=== PATIENT | female | born 1985 | race American Indian/Alaskan Native ===

== ENCOUNTER 2019-05-27 18:26 | Emergency (ER) | payer MEDICAID ==
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
[2019-05-27] MEDS ORDERED: LORazepam 0.5 MG Tab PO ONE (18:53)
[2019-05-27] MEDS ORDERED: Diphtheria,Pertussis(Acell),Tetanus Vaccine 0.5 ML SDV IM ONE (18:55)
--- NOTE | 2019-05-27 19:07 | CT ---
[id number] CT/CT Facial Bones WO IV Exam: CT Facial Bones WO IV Clinical Data: TRAUMA COMPARISON: NO PREVIOUS SIMILAR EXAM IS AVAILABLE FINDINGS: There is preseptal orbital edema on the left. The paranasal sinuses are aerated There is no orbital emphysema. There is no blowout fracture There is minimal mucosal thickening of the right maxillary sinus No facial fracture is seen IMPRESSION: NO FACIAL FRACTURE. Ryan Dave MD 05/27/19 0525 Thank you for allowing us to participate in the care of your patient.
[2019-05-27] MEDS ORDERED: LORazepam 0.5 MG Tab ONE (19:08)
== END 2019-05-27 19:20 | disposition home or self-care (01) ==
LOC: KA.ED 18:26
DX: S01.81XA Laceration without foreign body of other part of head, initial encounter (principal); S01.112A Laceration without foreign body of left eyelid and periocular area, initial encounter; Z23 Encounter for immunization; Y04.2XXA Assault by strike against or bumped into by another person, initial encounter
CPT/HCPCS: 12011; 70486; 90471; 90715; 99283-25; A9270-GY

== ENCOUNTER 2020-06-27 20:53 | Emergency (ER) | payer MEDICAID ==
[2020-06-27] MEDS ORDERED: Sodium Chloride 0.9% 10 ML Syringe FLUSH PRN (21:17)
[2020-06-27] MEDS ORDERED: Sodium Chloride 0.9% 1,000 ML IV ONE (21:18)
[2020-06-27] MEDS ORDERED: Ondansetron 4 MG/2 ML SDV IVPUSH ONE (21:33)
[2020-06-27] MEDS ORDERED: Morphine 4 MG/ML VIAL IVPUSH ONE (21:43)
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
[2020-06-27 22:18] LABS: ANION GAP 13.4 mmol/L (5-15); CHLORIDE,CL 104 mmol/L (98-115); SODIUM,NA 140 mmol/L (136-145)
--- NOTE | 2020-06-28 08:03 | CR ---
[id number] RAD/RAD Abdomen 3V EXAM: RAD Abdomen 3V INDICATION: Abdominal pain. COMPARISON: None. FINDINGS: Lungs are clear. The heart is normal in size. Cholecystectomy clips right upper quadrant. Normal bowel gas pattern with no bowel dilation, free air or pneumatosis detected. The osseous structures are unremarkable. Surgical suture line left upper quadrant. IMPRESSION: 1. No acute findings. Toribio Rosado MD 06/28/20 0802 Thank you for allowing us to participate in the care of your patient.
== END 2020-06-27 23:04 | disposition home or self-care (01) ==
LOC: KA.ED 20:53
DX: R10.13 Epigastric pain (principal); Z79.899 Other long term (current) drug therapy
CPT/HCPCS: 74022; 80053; 81001; 83690; 84703; 85025; 96361; 96374; 96375; 99284; J2270; J2405; J7030